=== PATIENT | male | born 1935 | race Caucasian/White ===

== ENCOUNTER 2018-07-16 11:17 | Observation (INO) | payer OTHER ==
--- NOTE | 2018-07-16 11:35 | EDPHY ---
HPI/HX/ROS/PE/MDM Narrative: CHIEF COMPLAINT: Fever, weakness HPI: This patient is an 83 year old male with history of hypertension. He presents with weakness and alternating chills and fever ongoing since Tuesday. His fever has been up to 103 degrees Fahrenheit at home. No cough, rhinorrhea, congestion. He endorses possible cloudy urine. He denies history of UTI. He did receive a flu shot this year. No chest pain, shortness of breath, syncope, vomiting, diarrhea, or other associated symptoms. REVIEW OF SYSTEMS: A comprehensive 10 system review of systems is otherwise negative aside from elements mentioned in the history of present illness and medical decision making. PMH: Hypertension SOCIAL HISTORY:. at bedside. Lives in [place]. Retired. PHYSICAL EXAM: General:Patient is alert, in no acute distress. ENT:Eyes are normal to inspection. ENT inspection normal. Neck: Normal inspection. Full range of motion. Respiratory:No respiratory distress. Breath sounds normal bilaterally. Cardiovascular: Regular rate and rhythm. Strong peripheral pulses. Normal cap refill. Abdomen:The abdomen is nontender to palpation. There are no peritoneal signs. There are normal bowel sounds. Back: Normal to inspection. No tenderness to palpation. Skin: Normal color. No rash. Warm and dry. Extremities: Normal appearance. Full range of motion. Neuro: Oriented x3. Normal motor function. Normal sensory function. ED Course: This 83 y/o male presents with two day history of weakness and fever. Plan for chest x-ray, labs including CBC, chemistries, lactic acid, UA, flu swab. 12:30 Reviewed laboratory studies. WBC elevated at 13,000. UA positive for UTI. Plan to administer 1g IV Rocephin. Flu swab negative. Lactic acid within normal limits. Reassessed patient. Discussed laboratory results. Discussed admission vs. outpatient followup and oral antibiotics. He feels well and feels comfortable with discharge following antibiotic administration. Plan to discharge home in good condition with prescription for Keflex. Follow up and return precautions discussed. He is comfortable with this plan. 14:40 Reassessed patient. Following Rocephin administration, he has begun to feel worse and complains of chills and rigors. Discussed admission for symptom management. He is amenable to this. 14:52 Consulted with hospitalist service. Dr. Munoz accepts admission for UTI. MDM: This patient presents with fever and cloudy urine. His UA is significantly postive with pyuria as well as positive nitrite and LE. No other infectious source is seen. His lactate is normal as are his vital signs. I see no sign of severe sepsis. Initial management plan was for a dose of IV antibiotics and outpatient management, but patient began to develop rigors and felt much worse after IV ceftriaxone administration which seems to often happen in these patients. He no longer feels comfortable going home so we will admit for further workup. - Data Points Imaging Results: Imaging Impressions Chest X-Ray 07/16/18 11:29 Impression: 1. Mild perihilar bronchitis, without a focal infiltrate. 2. Large chronic hiatal hernia. Laboratory Results: Laboratory Results 07/16/18 11:35 07/16/18 11:35 07/16/18 07/16/18 07/16/18 12:10 11:35 11:35 WBC RBC Hgb Hct MCV MCH MCHC RDW Plt Count MPV Neut % (Auto) Lymph % (Auto) [place] % (Auto) Eos % (Auto) Baso % (Auto) Nucleat RBC Rel Count Absolute Neuts (auto) Absolute Lymphs (auto) Absolute Monos (auto) Absolute Eos (auto) Absolute Basos (auto) Absolute Nucleated RBC Immature Gran % Seg Neutrophils % Band Neutrophils % Lymphocytes % Monocytes % Eosinophils % Basophils % Metamyelocytes % Myelocytes % Promyelocytes % Blast Cells % Immature Gran # Absolute Seg Neuts Absolute Band Neuts Absolute Lymphocytes Absolute Monocytes Absolute Eosinophils Absolute Basophils Absolute Metamyelocyte Absolute Myelocytes Absolute Promyelocytes Absolute Plasma Cells Nucleated RBCs Absolute Blast Cells Plasma Cells % Platelet Estimate Microcytic Cells Elliptocytes VBG Lactic Acid 1.1 mmol/L mmol/L (0.7-2.1) Sodium Potassium Chloride Carbon Dioxide Anion Gap BUN Creatinine Estimated GFR Glucose Calcium Urine Color JOSE RAUL Urine Appearance MODERATELY TURBID Urine pH 5.0 (5.0-7.5) Ur Specific [place] 1.020 (1.002-1.030) Urine Protein 2+ H (NEGATIVE) Urine Ketones NEGATIVE (NEGATIVE) Urine Blood 1+ H (NEGATIVE) Urine Nitrate POSITIVE H (NEGATIVE) Urine Bilirubin NEGATIVE (NEGATIVE) Urine Urobilinogen 4.0 EU H EU (0.2-1.0) Ur Leukocyte Esterase 3+ H (NEGATIVE) Urine RBC 15-25 /hpf H /hpf (0-3) Urine WBC 50-182 /hpf H /hpf (0-3) Ur Epithelial Cells TRACE /lpf /lpf (NONE-1+) Urine Bacteria 4+ /hpf H /hpf (NONE SEEN) Urine Mucus 4+ /lpf H /lpf (NONE-1+) Urine Glucose NEGATIVE (NEGATIVE) Nasal Influenza A PCR NEGATIVE FOR FLU A (NEGATIVE) Nasal Influenza B PCR NEGATIVE FOR FLU B (NEGATIVE) 07/16/18 07/16/18 11:35 11:35 WBC 13.14 10^3/uL H 10^3/uL (3.80-9.50) RBC 5.32 10^6/uL 10^6/uL (4.40-6.38) Hgb 14.0 g/dL g/dL (13.7-17.5) Hct 42.7 % % (40.0-51.0) MCV 80.3 fL L fL (81.5-99.8) MCH 26.3 pg L pg (27.9-34.1) MCHC 32.8 g/dL g/dL (32.4-36.7) RDW 13.6 % % (11.5-15.2) Plt Count 158 10^3/uL 10^3/uL (150-400) MPV 12.1 fL H fL (8.7-11.7) Neut % (Auto) Not Reported Lymph % (Auto) Not Reported [place] % (Auto) Not Reported Eos % (Auto) Not Reported Baso % (Auto) Not Reported Nucleat RBC Rel Count Not Reported Absolute Neuts (auto) Not Reported Absolute Lymphs (auto) Not Reported Absolute Monos (auto) Not Reported Absolute Eos (auto) Not Reported Absolute Basos (auto) Not Reported Absolute Nucleated RBC Not Reported Immature Gran % Not Reported Seg Neutrophils % 74.0 % % Band Neutrophils % 18.0 % % Lymphocytes % 3.0 % % Monocytes % 4.0 % % Eosinophils % 0.0 % % Basophils % 0.0 % % Metamyelocytes % 0.0 % % Myelocytes % 0.0 % % Promyelocytes % 0.0 % % Blast Cells % 0.0 % % Immature Gran # Not Reported Absolute Seg Neuts 9.72 10^3/uL H 10^3/uL (1.70-6.50) Absolute Band Neuts 2.37 10^3/uL H 10^3/uL (0.00-0.70) Absolute Lymphocytes 0.39 10^3/uL L 10^3/uL (1.00-3.00) Absolute Monocytes 0.53 10^3/uL 10^3/uL (0.30-0.80) Absolute Eosinophils 0.00 10^3/uL L 10^3/uL (0.03-0.40) Absolute Basophils 0.00 10^3/uL L 10^3/uL (0.02-0.10) Absolute Metamyelocyte 0.00 10^3/mL 10^3/mL (0.00-0.00) Absolute Myelocytes 0.00 10^3/mL 10^3/mL (0.00-0.00) Absolute Promyelocytes 0.00 10^3/uL 10^3/uL (0.00-0.00) Absolute Plasma Cells 0.00 10^3/uL 10^3/uL (0.00-0.00) Nucleated RBCs 0 /100 WBC /100 WBC (0-0) Absolute Blast Cells 0.00 10^3/uL 10^3/uL (0.00-0.00) Plasma Cells % 0.0 % % Platelet Estimate ADEQUATE (ADEQ) Microcytic Cells 1+ H Elliptocytes 1+ H VBG Lactic Acid Sodium 135 mEq/L mEq/L (135-145) Potassium 4.1 mEq/L mEq/L (3.5-5.2) Chloride 100 mEq/L mEq/L (97-110) Carbon Dioxide 23 mEq/l mEq/l (22-31) Anion Gap 12 mEq/L mEq/L (6-14) BUN 29 mg/dL H mg/dL (7-23) Creatinine 1.3 mg/dL mg/dL (0.7-1.3) Estimated GFR 53 Glucose 115 mg/dL H mg/dL (70-100) Calcium 8.8 mg/dL mg/dL (8.5-10.4) Urine Color Urine Appearance Urine pH Ur Specific [place] Urine Protein Urine Ketones Urine Blood Urine Nitrate Urine Bilirubin Urine Urobilinogen Ur Leukocyte Esterase Urine RBC Urine WBC Ur Epithelial Cells Urine Bacteria Urine Mucus Urine Glucose Nasal Influenza A PCR Nasal Influenza B PCR Medications Given: Discontinued Medications Acetaminophen (Tylenol) 650 mg PO EDNOW ONE Stop: 07/16/18 14:41 Last Admin: 07/16/18 14:44 Dose: 650 mg Ceftriaxone Sodium/Dextrose (Rocephin 1 Gm (Premix)) 50 mls @ 100 mls/hr IV EDNOW ONE PRN Reason: Protocol Stop: 07/16/18 13:02 Last Admin: 07/16/18 12:52 Dose: 50 mls General Time Seen by Provider: 07/16/18 11:23 Initial Vital Signs: Initial Vital Signs Temperature (C) 37.1 C 07/16/18 11:24 Heart Rate 81 07/16/18 11:24 Respiratory Rate 16 07/16/18 11:24 Blood Pressure 130/78 H 07/16/18 11:24 O2 Sat (%) 93 07/16/18 11:24 O2 Delivery Mode Room Air Allergies/Adverse Reactions: No Allergies [NKA] Allergy (Verified 07/16/18 11:24) Home Medications: Medication Instructions Recorded Aspirin EC [Aspirin EC 81 mg (*)] 81 mg PO DAILY 07/16/18 Diclofenac Sodium 1% [Voltaren Gel 1 shona TP DAILY PRN 07/16/18 (*)] Hydrochlorothiazide [HCTZ (*)] 25 mg PO DAILY 07/16/18 Ramipril [Altace] 10 mg PO DAILY 07/16/18 Departure - Departure Disposition: [facility] Inpatient Acute Clinical Impression: UTI (urinary tract infection) Qualifiers: Urinary tract infection type: acute cystitis Hematuria presence: without hematuria Qualified Code(s): N30.00 - Acute cystitis without hematuria Condition: Fair Report Scribed for: Ernie Fiore Report Scribed by: Dana Perkins Date of Report: 07/16/18 Time of Report: 11:35 Physician Review and Approval Statement: Portions of this note were transcribed by an ED scribe. I personally performed the history, physical exam, and medical decision making; and confirm the accuracy of the information in the transcribed note.
[2018-07-16 11:45] LABS: PLATELET COUNT 158 10^3/uL (150-400)
[2018-07-16] MEDS ORDERED: ACETAMINOPHEN 325 MG TAB PO ONE (14:40)
[2018-07-16] MEDS ORDERED: ONDANSETRON DISINTEGRATING 4 MG TAB PO PRN (14:58)
[2018-07-16] MEDS ORDERED: ONDANSETRON 4 MG/2 ML VIAL IVP PRN (14:58)
[2018-07-16] MEDS ORDERED: NS 1,000 ML IV SCH (15:00)
--- NOTE | 2018-07-16 15:46 | PDGENHP ---
History and Physical - Chief Complaint Rigors - History of Present Illness Felipe Day is a 83 yo M with a PMHx of HTN who presents to [facility] for chills/ fever and cloudy urine. He reports that he has been having alternating episodes of shaking chills and fevers at home. He had a Tmax of 103 at home on Tuesday. He has had cloudy urine and some discomfort with urination. He reports a hx of BPH, followed with Dr. Hines in the past who has performed a procedure to "open up his prostate". He denies any SOB, cough, d/c, chest pain , rash, headache. He also endorses generalized fatigue. He has been taking Ibuprofen at home for chills and fevers with improvement during those episodes. History Information - Allergies/Home Medication List Allergies/Adverse Reactions: No Allergies [NKA] Allergy (Verified 07/16/18 11:24) Home Medications: Aspirin EC [Aspirin EC 81 mg (*)] 81 mg PO DAILY 07/16/18 [Last Taken 07/16/18] Diclofenac Sodium 1% [Voltaren Gel (*)] 1 shona TP DAILY PRN 07/16/18 [Last Taken Unknown] Hydrochlorothiazide [HCTZ (*)] 25 mg PO DAILY 07/16/18 [Last Taken 07/16/18] Ramipril [Altace] 10 mg PO DAILY 07/16/18 [Last Taken 07/16/18] I have personally reviewed and updated: family history, medical history, social history, surgical history - Past Medical History hypertension - Surgical History Reports: no pertinent surgical hx - Family History Positive for: non-pertinent - Social History Smoking Status: Never smoked Review of Systems Review of Systems: ROS: 10pt was reviewed & negative except for what was stated in HPI & below Physical Exam Physical Exam: Temp Pulse Resp BP Pulse Ox 100.7 C H 79 18 136/65 H 97 07/16/18 14:39 07/16/18 14:39 07/16/18 14:39 07/16/18 14:39 07/16/18 14:39 Constitutional: no apparent distress Eyes: PERRL Ears, Nose, Mouth, Throat: dry mucous membranes Cardiovascular: regular rate and rhythym Respiratory: no respiratory distress Gastrointestinal: soft, non-tender abdomen Skin: warm Musculoskeletal: full muscle strength Neurologic: AAOx3 Psychiatric: interacting appropriately Lab Data & Imaging Review 07/16/18 11:35 07/16/18 11:35 WBC 13.14 10^3/uL (3.80-9.50) H 07/16/18 11:35 RBC 5.32 10^6/uL (4.40-6.38) 07/16/18 11:35 Hgb 14.0 g/dL (13.7-17.5) 07/16/18 11:35 Hct 42.7 % (40.0-51.0) 07/16/18 11:35 MCV 80.3 fL (81.5-99.8) L 07/16/18 11:35 MCH 26.3 pg (27.9-34.1) L 07/16/18 11:35 MCHC 32.8 g/dL (32.4-36.7) 07/16/18 11:35 RDW 13.6 % (11.5-15.2) 07/16/18 11:35 Plt Count 158 10^3/uL (150-400) 07/16/18 11:35 MPV 12.1 fL (8.7-11.7) H 07/16/18 11:35 Neut % (Auto) Not Reported 07/16/18 11:35 Lymph % (Auto) Not Reported 07/16/18 11:35 [place] % (Auto) Not Reported 07/16/18 11:35 Eos % (Auto) Not Reported 07/16/18 11:35 Baso % (Auto) Not Reported 07/16/18 11:35 Nucleat RBC Rel Count Not Reported 07/16/18 11:35 Absolute Neuts (auto) Not Reported 07/16/18 11:35 Absolute Lymphs (auto) Not Reported 07/16/18 11:35 Absolute Monos (auto) Not Reported 07/16/18 11:35 Absolute Eos (auto) Not Reported 07/16/18 11:35 Absolute Basos (auto) Not Reported 07/16/18 11:35 Absolute Nucleated RBC Not Reported 07/16/18 11:35 Immature Gran % Not Reported 07/16/18 11:35 Seg Neutrophils % 74.0 % 07/16/18 11:35 Band Neutrophils % 18.0 % 07/16/18 11:35 Lymphocytes % 3.0 % 07/16/18 11:35 Monocytes % 4.0 % 07/16/18 11:35 Eosinophils % 0.0 % 07/16/18 11:35 Basophils % 0.0 % 07/16/18 11:35 Metamyelocytes % 0.0 % 07/16/18 11:35 Myelocytes % 0.0 % 07/16/18 11:35 Promyelocytes % 0.0 % 07/16/18 11:35 Blast Cells % 0.0 % 07/16/18 11:35 Immature Gran # Not Reported 07/16/18 11:35 Absolute Seg Neuts 9.72 10^3/uL (1.70-6.50) H 07/16/18 11:35 Absolute Band Neuts 2.37 10^3/uL (0.00-0.70) H 07/16/18 11:35 Absolute Lymphocytes 0.39 10^3/uL (1.00-3.00) L 07/16/18 11:35 Absolute Monocytes 0.53 10^3/uL (0.30-0.80) 07/16/18 11:35 Absolute Eosinophils 0.00 10^3/uL (0.03-0.40) L 07/16/18 11:35 Absolute Basophils 0.00 10^3/uL (0.02-0.10) L 07/16/18 11:35 Absolute Metamyelocyte 0.00 10^3/mL (0.00-0.00) 07/16/18 11:35 Absolute Myelocytes 0.00 10^3/mL (0.00-0.00) 07/16/18 11:35 Absolute Promyelocytes 0.00 10^3/uL (0.00-0.00) 07/16/18 11:35 Absolute Plasma Cells 0.00 10^3/uL (0.00-0.00) 07/16/18 11:35 Nucleated RBCs 0 /100 WBC (0-0) 07/16/18 11:35 Absolute Blast Cells 0.00 10^3/uL (0.00-0.00) 07/16/18 11:35 Plasma Cells % 0.0 % 07/16/18 11:35 Platelet Estimate ADEQUATE (ADEQ) 07/16/18 11:35 Microcytic Cells 1+ H 07/16/18 11:35 Elliptocytes 1+ H 07/16/18 11:35 VBG Lactic Acid 1.1 mmol/L (0.7-2.1) 07/16/18 11:35 Sodium 135 mEq/L (135-145) 07/16/18 11:35 Potassium 4.1 mEq/L (3.5-5.2) 07/16/18 11:35 Chloride 100 mEq/L (97-110) 07/16/18 11:35 Carbon Dioxide 23 mEq/l (22-31) 07/16/18 11:35 Anion Gap 12 mEq/L (6-14) 07/16/18 11:35 BUN 29 mg/dL (7-23) H 07/16/18 11:35 Creatinine 1.3 mg/dL (0.7-1.3) 07/16/18 11:35 Estimated GFR 53 07/16/18 11:35 Glucose 115 mg/dL (70-100) H 07/16/18 11:35 Calcium 8.8 mg/dL (8.5-10.4) 07/16/18 11:35 Urine Color JOSE RAUL 07/16/18 12:10 Urine Appearance MODERATELY TURBID 07/16/18 12:10 Urine pH 5.0 (5.0-7.5) 07/16/18 12:10 Ur Specific [place] 1.020 (1.002-1.030) 07/16/18 12:10 Urine Protein 2+ (NEGATIVE) H 07/16/18 12:10 Urine Ketones NEGATIVE (NEGATIVE) 07/16/18 12:10 Urine Blood 1+ (NEGATIVE) H 07/16/18 12:10 Urine Nitrate POSITIVE (NEGATIVE) H 07/16/18 12:10 Urine Bilirubin NEGATIVE (NEGATIVE) 07/16/18 12:10 Urine Urobilinogen 4.0 EU (0.2-1.0) H 07/16/18 12:10 Ur Leukocyte Esterase 3+ (NEGATIVE) H 07/16/18 12:10 Urine RBC 15-25 /hpf (0-3) H 07/16/18 12:10 Urine WBC 50-182 /hpf (0-3) H 07/16/18 12:10 Ur Epithelial Cells TRACE /lpf (NONE-1+) 07/16/18 12:10 Urine Bacteria 4+ /hpf (NONE SEEN) H 07/16/18 12:10 Urine Mucus 4+ /lpf (NONE-1+) H 07/16/18 12:10 Urine Glucose NEGATIVE (NEGATIVE) 07/16/18 12:10 Nasal Influenza A PCR NEGATIVE FOR FLU A (NEGATIVE) 07/16/18 11:35 Nasal Influenza B PCR NEGATIVE FOR FLU B (NEGATIVE) 07/16/18 11:35 Assessment & Plan Assessment: UTI (urinary tract infection) (Acute) - Presenting with f/c for 3 days, cloudy urine - UA on admission with Nitrate +, 3+ LE, 50-182 WBC, 4+ Bacteria - No hx of UTI, does have hx of BPH, no catheter in the past - S/p Ceftriaxone in the ED, will continue for now - Urine culture pending Sepsis - Patient febrile 100.7, Leukocytosis 13.1 with 18% bands on admission - LA 1.1, no tachycardia or hypotension present - Will bolus 1L IVF, hold on 30 cc/kg given normal VS, continue mIVF overnight - Blood and urine cultures pending - Treatment of UTI as above SUKHDEEP - BUN/Cr 29/1.3 on admission, Cr 0.9, 1.1 in the past - In setting of UTI - Will check FENa - IVF as above - Continue to monitor BMP, I/O, avoid nephrotoxic agents (holding home Lisinopril) Hx of BPH - Reports hx of procedure with Dr. Hines in the past - Not currently on Alpha-andrey HTN - Will hold home BP meds including HCTZ, Ramipril in the setting of sepsis FEN: IVF, Regular DVT PPx: SubQ Heparin Code: FULL Dispo: Admit to Medicine
[2018-07-16] MEDS ORDERED: NS 1,000 ML IV ONE (16:58)
[2018-07-16] MEDS: ACETAMINOPHEN 325 MG TAB PO PRN (21:15)
[2018-07-16] MEDS ORDERED: IBUPROFEN 600 MG TAB PO PRN (21:42)
[2018-07-16] MEDS: HEPARIN 5,000 UNIT/0.5 ML INJ SC SCH (22:11)
[2018-07-17 05:00] LABS: PLATELET COUNT 120 10^3/uL (150-400)
[2018-07-17] MEDS: HEPARIN 5,000 UNIT/0.5 ML INJ SC SCH (05:58)
[2018-07-17] MEDS ORDERED: ASPIRIN EC 81 MG TAB PO SCH (11:45)
[2018-07-17] MEDS: HYDROCHLOROTHIAZIDE 25 MG TAB PO SCH (12:56)
[2018-07-17] MEDS: RAMIPRIL 5 MG CAP PO SCH (12:57)
--- NOTE | 2018-07-17 12:58 | ASMTCMCOM ---
CM Note CM Note Notes: Patient plan of care reviewed in am rounds. 83 year old male in with UTI. History of urological issues and followed by Dr. Hines. Pet PT patient independent with ADL's so no anticipated needs at this time. CM available should needs arise. Plan: Likely to discharge independently when medically cleared. Date Signed: 07/17/2018 11:37 AM Electronically Signed By:Yanet Bassett RN
[2018-07-17] MEDS: ASPIRIN EC 81 MG TAB PO SCH (13:09)
--- NOTE | 2018-07-17 13:12 | HOSPPROG ---
Hospitalist Progress Note Assessment/Plan: 83-year-old relatively healthy man is admitted with fevers and rigors. Evaluation included id workup that is significant for pyuria although he has minimal symptoms. # sepsis: Elevated white count with bandemia, renal insufficiency with elevated creatinine, fevers and rigors, has improved after initiation of IV antibiotics. Likely source is urine however cannot rule out bacteremia given his rigors prior to admission * Will need additional midnight stay for evaluation of bacteremia * Continue IV antibiotics while await culture results. # BPH # pyuria, asymptomatic except for fevers and white count will treat empirically for UTI and await cultures # acute renal insufficiency with elevated creatinine of 1.3 above his baseline. * Avoid nephrotoxins * Hydrated with normal saline in the emergency department # hypertension, blood pressure has been low/normal. Will hold blood pressure medication today consider resuming tomorrow. Subjective: Patient new to me and chart reviewed. Feels better today however unclear etiology of his fever and rigors. Given his presentation will await culture results he will need additional midnight stay Objective: Vital Signs Temp Pulse Resp BP Pulse Ox 36.7 C 65 18 113/61 97 07/17/18 12:19 07/17/18 12:19 07/17/18 12:19 07/17/18 12:19 07/17/18 12:19 Laboratory Results 07/17/18 04:04 07/17/18 04:04 07/16/18 07/17/18 07/18/18 05:59 05:59 05:59 Intake Total 500 Output Total 400 500 Balance 100 -500 - Physical Exam Constitutional: no apparent distress Eyes: PERRL, EOMI Ears, Nose, Mouth, Throat: moist mucous membranes Cardiovascular: regular rate and rhythym, no murmur, rub, or gallop Respiratory: no respiratory distress, clear to auscultation Gastrointestinal: soft, non-tender abdomen Genitourinary: no bladder fullness Skin: warm, normal color Musculoskeletal: full muscle strength Neurologic: AAOx3 ICD10 Worksheet Patient Problems: Problems Problem Status Onset UTI (urinary tract infection) Acute
[2018-07-17] MEDS ORDERED: ENOXAPARIN 40 MG/0.4 ML SYR SC SCH (14:00)
[2018-07-17] MEDS: ACETAMINOPHEN 325 MG TAB PO PRN (15:23)
[2018-07-18 04:30] LABS: PLATELET COUNT 126 10^3/uL (150-400)
[2018-07-18 08:42] VITALS: BP 117/64
[2018-07-18] MEDS: HYDROCHLOROTHIAZIDE 25 MG TAB PO SCH (08:42)
[2018-07-18] MEDS: RAMIPRIL 5 MG CAP PO SCH (08:42)
[2018-07-18] MEDS: ASPIRIN EC 81 MG TAB PO SCH (09:49)
--- NOTE | 2018-07-18 10:25 | ASDISCHSUM ---
Discharge Information Plan Status:Home with No Needs Medically Cleared to Leave:07/18/2018 Discharge Date:07/18/2018 CM D/C Disposition:Home, Routine, Self-Care ADT D/C Disposition:Home, Routine, Self-Care Projected Discharge Date:07/18/2018 Transportation at D/C: Discharge Delay Reason: Follow-Up Date:07/18/2018 Discharge Slot: Final Diagnosis: Placement Information Patient Contact Information Contact Name:HUGO Relationship: Address:[address] City:[place] Alternate Phone: [facility]/Zip Code:[place] [address] Email: Financial Information Financial Class:Medicare Advantage Plans Primary Plan Desc:[employer] MEDICARE ADV Primary Plan Number:[id number] Secondary Plan Desc: Secondary Plan Number: Assessment Information LACE LACE Length of stay for Answers: 1 day current admission Comorbidities - select Answers: Other Notes: HTN all that apply # of Emergency department Answers: 1-2 visits in the last 6 months Score: 3 Date Signed: 07/18/2018 10:21 AM Electronically Signed By:Yanet Bassett RN [facility] CM Progress Note CM Note CM Note Notes: Patient plan of care reviewed in am rounds. 83 year old male in with UTI. History of urological issues and followed by Dr. Hines. Pet PT patient independent with ADL's so no anticipated needs at this time. CM available should needs arise. Plan: Likely to discharge independently when medically cleared. Date Signed: 07/17/2018 11:37 AM Electronically Signed By:Yanet Bassett RN Intervention Information
--- NOTE | 2018-07-18 10:30 | ASMTDCNOTE ---
Case Management Discharge Discharge Order Complete? Answers: Yes Patient to Obtain Answers: Independently Medications Transportation Arranged Answers: Family/Friends Family Notified Answers: Yes Discharge Comments Notes: Medically cleared for independent discharge to home. Date Signed: 07/18/2018 10:25 AM Electronically Signed By:Yanet Bassett RN
--- NOTE | 2018-07-18 10:36 | GDS ---
[f rep st] DISCHARGE SUMMARY DIAGNOSES: 1. Urinary tract infection associated with fevers, rigors, systemic inflammatory response syndrome. 2. Hypertension. 3. BPH. HOSPITAL COURSE: The patient is a very nice 83-year-old who comes in with fevers, rigors, and cloudy urine. He did have some minimal dysuria, and when he came into the emergency department, he did hav e a high fever. Urine cultures and blood cultures were drawn at that time. He was started on ceftri axone, and by the next day, was feeling much improved. However, given his rigors, he was monitored a nother day for possible bacteremia. However, at 48 hours, his blood cultures remain negative to date , and urine culture is growing out a lactose-fermenting gram-negative dl. Given his improvement, I will discharge him on Keflex for 5 more days. He should follow up with his primary care provider who can follow up on his urine cultures to make sure he is on adequate therapy. CONDITION ON DISCHARGE: Good. He has been afebrile. Blood pressure 117/64 with a heart rate of 62. He is 93% on room air. DISCHARGE MEDICATIONS: Please see discharge medication form. FOLLOWUP: With his primary care provider this week who needs to follow up on his urine cultures. Total time spent with patient on day of discharge and coordination of care 35 minutes. Copy requested to: Dr. Cantu /[id number]
== END 2018-07-18 11:45 | disposition home or self-care (01) ==
LOC: F1N 15:48
PROVIDERS: ADMIT Internal Medicine; ATTEND Internal Medicine
DX: N30.00 Acute cystitis without hematuria (principal); I10 Essential (primary) hypertension; N40.1 Benign prostatic hyperplasia with lower urinary tract symptoms; N28.9 Disorder of kidney and ureter, unspecified; K44.9 Diaphragmatic hernia without obstruction or gangrene
CPT/HCPCS: 71046; 96361; 96365; 96372; 96376; 97161; 97165; 99285; G0378; J0696; J1644; J1650